=== PATIENT | female | born 1955 | race Caucasian/White ===

== ENCOUNTER 2020-12-28 11:48 | Outpatient (CLI) | payer MEDICARE, SELFPAY ==
--- NOTE | 2020-12-28 11:54 | MM_ITS ---
WS: [id number] BILATERAL SCREENING DIGITAL MAMMOGRAM WITH CAD HISTORY: SCREENING COMPARISON: 05/19/2019 Bilateral CC and MLO views submitted. Computer aided detection analyzed. Breast composition: There are scattered areas of fibroglandular density. No suspicious masses, microc alcifications or architectural distortion. MM/[place] [id number] IMPRESSION: BI-RADS: 1-Negative FOLLOW UP: 1 Year Follow-up
== END 2020-12-28 11:49 | disposition home or self-care (01) ==
LOC: RADSHAW 11:53
PROVIDERS: PCP Internal Medicine; Visit Provider Internal Medicine
DX: Z12.31 Encounter for screening mammogram for malignant neoplasm of breast (principal)
CPT/HCPCS: 77067

== ENCOUNTER 2022-07-12 10:53 | Outpatient (CLI) | payer MEDICARE, SELFPAY ==
--- NOTE | 2022-07-12 10:57 | MM_ITS ---
WS: [id number] BILATERAL 3D TOMOSYNTHESIS DIGITAL SCREENING MAMMOGRAPHY WITH CAD CLINICAL INFORMATION: SCREENING COMPARISON: December 28, 2020 TECHNIQUE: Bilateral CC and MLO views. FINDINGS: Scattered fibroglandular densities bilaterally. No suspicious focal mass, asymmetry, calcifications, or architectural distortion. No evidence of malignancy. MM/[place] [id number] IMPRESSION: BI-RADS: 1-Negative FOLLOW UP: 1 Year Follow-up Recommend return to annual screening mammography.
== END 2022-07-12 10:54 | disposition home or self-care (01) ==
LOC: RAD 10:54
PROVIDERS: PCP Internal Medicine; Visit Provider Internal Medicine
DX: Z12.31 Encounter for screening mammogram for malignant neoplasm of breast (principal)
CPT/HCPCS: 77063; 77067

== ENCOUNTER 2023-03-14 07:31 | Outpatient (CLI) | payer OTHER, SELFPAY ==
--- NOTE | 2023-03-14 07:49 | US_ITS ---
WS: [id number] RIGHT UPPER QUADRANT ULTRASOUND HISTORY: RUQ ABDOMINAL PAIN COMPARISON: None available. Liver: 14.6 cm in length. Normal size liver and echogenicity. No bile duct dilatation or mass. Portal Vein: Normal hepatopetal flow with monophasic waveform. Gallbladder: Normally distended gallbladder with no stones or wall thickening. CBD: 0.3 cm Pancreas: Partially obscured. Tail is not well visualized. Right kidney: 11.0 cm in length. Normal size kidney. Extrarenal pelvis. No calyceal dilatation. Aorta and IVC: Unremarkable abdominal aorta and IVC. No ascites. US/US abdomen limited [id number] IMPRESSION: Normal RIGHT upper quadrant ultrasound.
== END 2023-03-14 07:32 | disposition home or self-care (01) ==
LOC: RAD 07:36
PROVIDERS: PCP Internal Medicine; Visit Provider Internal Medicine
DX: R10.11 Right upper quadrant pain (principal)
CPT/HCPCS: 76705

== ENCOUNTER 2023-07-04 11:28 | Outpatient (CLI) | payer OTHER, SELFPAY ==
--- NOTE | 2023-07-04 11:48 | XRR_ITS ---
PROCEDURE INFORMATION: Exam: XR Right Shoulder Exam date and time: 07/04/2023 11:52 AM Age: 68 years old Clinical indication: Pain; Shoulder; Right; Additional info: Pain in R shoulder TECHNIQUE: Imaging protocol: Radiologic exam of the right shoulder. Views: 2 or more views. COMPARISON: No relevant prior studies available. FINDINGS: Bones/joints: There are mild degenerative changes at the AC joint and inferior aspect of the glenohumeral joint with mild joint space narrowing and subchondral sclerosis. There is no fracture, dislocation or malalignment. Soft tissues: Normal. XR/XR shoulder RT min 2V* [id number] IMPRESSION: Mild degenerative changes right shoulder joint. No acute abnormalities.
--- NOTE | 2023-07-04 11:48 | XRR_ITS ---
PROCEDURE INFORMATION: Exam: XR Lumbosacral Spine Exam date and time: 07/04/2023 11:52 AM Age: 68 years old Clinical indication: Low back pain; Additional info: Degenerative disc dz w/radiculopathy TECHNIQUE: Imaging protocol: Radiologic exam of the lumbosacral spine. Views: 6 or more views. Including flexion and extension views. COMPARISON: No relevant prior studies available. FINDINGS: Bones/joints: Lumbar curvature and alignment is unremarkable. Flexion and extension views demonstrates maintained anatomic alignment without evidence of subluxation. There are mild degenerative changes lower lumbar spine with mild disc space narrowing, end plate sclerosis and facet arthrosis. Osseous structures are otherwise unremarkable. There is no fracture or spondylolisthesis. Pedicles are intact. Soft tissues: Paraspinal soft tissues are unremarkable. XR/XR lumbar spine 6V w f/e [id number] IMPRESSION: Mild degenerative changes lower lumbar spine. No acute bony abnormalities
== END 2023-07-04 11:29 | disposition home or self-care (01) ==
PROVIDERS: PCP Internal Medicine; Visit Provider Internal Medicine
DX: M51.17 Intervertebral disc disorders with radiculopathy, lumbosacral region (principal); M25.511 Pain in right shoulder
CPT/HCPCS: 72114; 73030

== ENCOUNTER 2023-07-31 06:00 | Outpatient (RCR) | payer OTHER, SELFPAY | END 2023-08-27 23:59 | disposition home or self-care (01) | LOC: APT 06:00 | PROVIDERS: Visit Provider Internal Medicine | DX: M51.17 Intervertebral disc disorders with radiculopathy, lumbosacral region (principal); M25.511 Pain in right shoulder | CPT/HCPCS: 97110; 97112; 97161; 97530 ==

== ENCOUNTER 2023-08-28 06:00 | Outpatient (RCR) | payer OTHER, SELFPAY | END 2023-09-26 23:59 | disposition home or self-care (01) | LOC: APT 06:00 | PROVIDERS: Visit Provider Internal Medicine | DX: M25.511 Pain in right shoulder (principal) | CPT/HCPCS: 97110; 97112; 97140; 97530 ==

== ENCOUNTER 2023-11-06 08:04 | Outpatient (CLI) | payer OTHER, MEDICAID, SELFPAY ==
--- NOTE | 2023-11-06 08:10 | MR_ITS ---
WS: [id number] MRI RIGHT SHOULDER HISTORY: PAIN IN R SHOULDER COMPARISON: Radiograph 07/04/2023 TECHNIQUE: Multiplanar sequences of the shoulder joint are submitted. Mild AC joint arthropathy. Small osteophytes encroach upon the supraspinatus tendon. Smaller erosions along the distal clavicle and the acromion. Small amount of fluid in the subacromial and subdeltoid bursa. Minimal subacromial impingement. No os acromion. There is a small amount of fluid along the bi ceps tendon sheath. Very slight atrophy of the supraspinatus muscle. There is a very tiny insertion site tear measuring a pproximately 5 mm in width involving the anterior most supraspinatus tendon. No retraction. The remai tyesha tendons appear normal. Intrasubstance degeneration in the superior labrum. No tear. Very slight narrowing of the glenohumeral joint. There is no joint effusion. IMPRESSION: 1. Mild AC joint arthritis. 2. Mild biceps tendon tenosynovitis. No biceps tendon tear. 3. Very tiny insertion site tear of the anteriormost supraspinatus tendon. No retraction.
== END 2023-11-06 08:05 | disposition home or self-care (01) ==
LOC: RAD 08:05
PROVIDERS: Visit Provider Internal Medicine
DX: M19.011 Primary osteoarthritis, right shoulder (principal); M75.21 Bicipital tendinitis, right shoulder; M75.111 Incomplete rotator cuff tear or rupture of right shoulder, not specified as traumatic
CPT/HCPCS: 73221

== ENCOUNTER 2024-05-05 14:58 | Outpatient (CLI) | payer MEDICARE, SELFPAY ==
--- NOTE | 2024-05-05 15:00 | MM_ITS ---
WS: [id number] BILATERAL 3D TOMOSYNTHESIS DIGITAL SCREENING MAMMOGRAPHY WITH CAD CLINICAL INFORMATION: SCREENING HISTORY: Screening mammogram. No current complaints. COMPARISON: 2021 TECHNIQUE: Bilateral CC and MLO views. FINDINGS: The breasts are composed of heterogeneous fibroglandular density tissue, which can limit the detectio n of small underlying mass lesions. No suspicious mass, asymmetry, calcifications, or architectural d istortion. No evidence of malignancy. MM/[place] [id number] IMPRESSION: BI-RADS: 1-Negative FOLLOW UP: 1 Year Follow-up Recommend return to annual screening mammography.
== END 2024-05-05 14:59 | disposition home or self-care (01) ==
LOC: MOBLMAM 15:03
PROVIDERS: PCP Internal Medicine; Visit Provider Internal Medicine
DX: Z12.31 Encounter for screening mammogram for malignant neoplasm of breast (principal)
CPT/HCPCS: 77063; 77067

== ENCOUNTER 2024-05-27 08:55 | Outpatient (CLI) | payer MEDICARE, SELFPAY ==
--- NOTE | 2024-05-27 09:42 | XRR_ITS ---
PROCEDURE INFORMATION: Exam: XR Right Foot Exam date and time: 05/27/2024 9:45 AM Age: 69 years old Clinical indication: Pain; Foot; Right; Additional info: Pain in right foot TECHNIQUE: Imaging protocol: Radiologic exam of the right foot. Views: 3 or more views. COMPARISON: No relevant prior studies available. FINDINGS: Bones/joints: No fracture or dislocation is appreciated. Joint spaces are relatively well preserved. Bony mineralization is normal. There is a small plantar calcaneal spur. Small enthesophyte/osteophyte is present at the Achilles tendon insertion. Soft tissues: Normal. XR/XR foot RT min 3V* [id number] IMPRESSION: 1. No acute findings.
== END 2024-05-27 08:56 | disposition home or self-care (01) ==
LOC: RAD 09:01
PROVIDERS: PCP Internal Medicine; Visit Provider Nurse Practitioner Family
DX: M79.671 Pain in right foot (principal)
CPT/HCPCS: 73630

== ENCOUNTER → 2024-06-11 08:43 | Outpatient (BNVA) | payer MEDICARE, SELFPAY | PROVIDERS: PCP Internal Medicine; Visit Provider Podiatrist Foot & Ankle Surgery | DX: M72.2 Plantar fascial fibromatosis | CPT/HCPCS: 99203 ==

== ENCOUNTER → 2024-07-10 10:25 | Outpatient (BNVA) | payer MEDICARE, SELFPAY | PROVIDERS: PCP Internal Medicine; Visit Provider Podiatrist Foot & Ankle Surgery | DX: M72.2 Plantar fascial fibromatosis (principal) | CPT/HCPCS: 20550 ==

== ENCOUNTER → 2024-08-05 13:57 | Outpatient (BNVA) | payer MEDICARE, SELFPAY | PROVIDERS: PCP Internal Medicine; Visit Provider Podiatrist Foot & Ankle Surgery | DX: M72.2 Plantar fascial fibromatosis (principal); M79.671 Pain in right foot | CPT/HCPCS: 99213 ==

== ENCOUNTER → 2024-09-09 09:54 | Outpatient (BNVA) | payer MEDICARE, SELFPAY | PROVIDERS: PCP Internal Medicine; Visit Provider Podiatrist Foot & Ankle Surgery | DX: M72.2 Plantar fascial fibromatosis (principal); M79.671 Pain in right foot | CPT/HCPCS: 99213 ==

== ENCOUNTER 2025-05-31 13:37 | Outpatient (CLI) | payer MEDICARE, SELFPAY ==
--- NOTE | 2025-05-31 13:45 | XR_ITS ---
WS: [id number] XR foot LT min 3V* [id number] REASON FOR EXAM: NAIL ENTERING THROUGH SKIN FINDINGS: No metallic soft tissue foreign body. No fracture or focal bone lesion. No periosteal reaction or bone erosion. Joint spaces of the forefoot, midfoot, and hindfoot are intact and relatively well preserved. Small anterior calcaneal enthesophyte. XR/XR foot LT min 3V* [id number] IMPRESSION: No significant bone or joint abnormality.
== END 2025-05-31 13:38 | disposition home or self-care (01) ==
PROVIDERS: PCP Internal Medicine; Visit Provider Internal Medicine
DX: W45.0XXA Nail entering through skin, initial encounter (principal); Y99.9 Unspecified external cause status; M77.32 Calcaneal spur, left foot
CPT/HCPCS: 73630

== ENCOUNTER 2025-06-10 10:15 | Outpatient (CLI) | payer MEDICARE, SELFPAY ==
--- NOTE | 2025-06-10 10:20 | MM_ITS ---
WS: [id number] BILATERAL SCREENING DIGITAL TOMOSYNTHESIS MAMMOGRAM WITH CAD HISTORY: SCREENING COMPARISON: 05/05/2024, 07/12/2022 Bilateral CC and MLO views with tomosynthesis and synthetic mammography submitted. Computer aided detection analyzed. Breast composition: There are scattered areas of fibroglandular density. No suspicious masses, microcalcifications or architectural distortion. Lymph node lateral LEFT breast. MM/MM scr BI tomosynthesis [id number] IMPRESSION: BI-RADS: 2 - Benign. FOLLOW UP: 1 Year Follow-up
== END 2025-06-10 10:16 | disposition home or self-care (01) ==
LOC: MOBLMAM 10:22
PROVIDERS: PCP Internal Medicine; Visit Provider Internal Medicine
DX: Z12.31 Encounter for screening mammogram for malignant neoplasm of breast (principal); R92.323 Mammographic fibroglandular density, bilateral breasts; R59.0 Localized enlarged lymph nodes
CPT/HCPCS: 77063; 77067